=== PATIENT | male | born 1995 | race Two or more races ===

== ENCOUNTER 2023-07-06 18:34 | Emergency (ER) | payer OTHER ==
[~2023-07-06] VITALS: Ht 188 cm; Wt 95.3 kg
[2023-07-06] MEDS ORDERED: DICLOFENAC SODI75 MG PO (20:55)
== END 2023-07-06 21:06 | disposition home or self-care (01) ==
LOC: ER 18:34
DX: S13.4XXA Sprain of ligaments of cervical spine, initial encounter (principal); V49.9XXA Car occupant (driver) (passenger) injured in unspecified traffic accident, initial encounter; Y93.9 Activity, unspecified; Y92.9 Unspecified place or not applicable; Y99.9 Unspecified external cause status

== ENCOUNTER 2024-11-14 09:32 | Outpatient (CLI) | payer OTHER ==
[~2024-11-14 09:32] MED LIST: DICLOFENAC SODI75 MG PO
== END 2024-11-14 09:41 | disposition home or self-care (01) ==
LOC: SONOGRAMA 09:32
DX: R22.41 Localized swelling, mass and lump, right lower limb (principal)

== ENCOUNTER 2025-06-09 08:31 | Outpatient (CLI) | payer OTHER | END 2025-06-09 08:46 | disposition home or self-care (01) | LOC: MRI 08:31 | DX: M25.562 Pain in left knee (principal) | CPT/HCPCS: 73721 ==